=== PATIENT | female | born 1960 | race Two or more races ===

== ENCOUNTER 2017-03-04 15:33 | Emergency (ER) | payer OTHER ==
[2017-03-04 15:59] VITALS: BP 144/89
[2017-03-04] MEDS ORDERED: Diphtheria,Pertussis(Acell),Tetanus Vaccine 0.5 ML SDV IM ONE (16:02)
--- NOTE | 2017-03-04 16:05 | EDM.PDOC ---
ED HPI GENERAL MEDICAL PROBLEM - General Chief Complaint: Upper Extremity Injury/Pain Stated Complaint: FISH HOOK Time Seen by Provider: 03/04/17 16:02 Source of Information: Reports: Patient, Family, RN Notes Reviewed History Limitations: Reports: No Limitations - History of Present Illness INITIAL COMMENTS - FREE TEXT/NARRATIVE: 56-year-old female presents emergency department today with a fishhook injury to her left hand digit #2 no functional complaints Left Hand Pain Score (Numeric/FACES): 5 - Related Data Allergies Allergy/AdvReac Type Severity Reaction Status Date / Time Sulfa (Sulfonamide Allergy Hives Verified 03/04/17 15:59 Antibiotics) Home Meds: Home Meds NK [No Known Home Meds] 02/29/16 [History] Past Medical History Genitourinary History: Reports: Pyelonephritis PATIENT SUPPORT ASSISTANT History: Reports: - Past Surgical History Musculoskeletal Surgical History: Reports: Carpal Tunnel, Ganglion Cyst Social & Family History - Tobacco Use Smoking Status *Q: Light Tobacco Smoker Years of Tobacco use: 25 Packs/Tins Daily: 0.5 - Alcohol Use Days Per Week of Alcohol Use: 7 Number of Drinks Per Day: 3 Total Drinks Per Week: 21 - Recreational Drug Use Recreational Drug Use: No Review of Systems - Review of Systems Review Of Systems: See Below Constitutional: Reports: No Symptoms Skin: Reports: Wound Neurological: Reports: No Symptoms ED EXAM, GENERAL - Physical Exam Exam: See Below Free Text/Narrative:: Examination left hand full range of motion of all digits radial pulses 2+ she does have a 3 barbed hook lodged in the distal aspect of digit #2 palmar surface ED TRAUMA EXTREMITY PROCEDURES - Foreign Body Removal Indication:: Manley Consent Obtained: Patient Performing Doctor:: OfficerChan Foreign Body Other Location Comment:: Digit #2 left hand Anesthesia Type: Local Findings:: Manley removed with the 18-gauge needle technique Complications:: No Course - Vital Signs Last Recorded V/S: Last Vital Signs Temp 95.9 F 03/04/17 15:57 Pulse 71 03/04/17 15:57 Resp 15 03/04/17 15:57 BP 144/89 H 03/04/17 15:57 Pulse Ox 96 03/04/17 15:57 - Orders/Labs/Meds Orders: Active Orders 24 hr Category Date Time Status Vaccines to be Administered [RC] PER UNIT ROUTINE Care 03/04/17 16:02 Active Meds: Medications Discontinued Medications Generic Name Dose Route Start Last Admin Trade Name Giles PRN Reason Stop Dose Admin Diphtheria/Tetanus/Acell Pertussis 0.5 ml 03/04/17 16:02 03/04/17 16:15 Adacel IM 03/04/17 16:03 0.5 ml .ONCE ONE Administration Lidocaine HCl 5 ml 03/04/17 15:52 03/04/17 15:56 Xylocaine-Mpf 1% INJECT 03/04/17 15:53 5 ml ONETIME ONE Administration Departure - Departure Time of Disposition: 16:38 Disposition: Home, Self-Care 01 Condition: Good Clinical Impression: Fish hook injury of left hand Qualifiers: Encounter type: initial encounter Qualified Code(s): S69.92XA - Unspecified injury of left wrist, hand and finger(s), initial encounter - Discharge Information Referrals: PCP,None [Primary Care Provider] - Forms: ED Department Discharge Additional Instructions: Please followup with your primary care provider in 3-5 days if not better, please call return to the emergency department with worsening of symptoms. - My Orders Last 24 Hours: My Active Orders 03/04/17 16:02 Vaccines to be Administered [RC] PER UNIT ROUTINE - Assessment/Plan Last 24 Hours: My Active Orders 03/04/17 16:02 Vaccines to be Administered [RC] PER UNIT ROUTINE Plan: Assessment Acuity = acute Site and laterality = fishhook digit #2 left hand Etiology = Rapila Manifestations = none Location of injury = Home Lab values = none Plan [Follow-up with primary care as needed Patient was in agreement with the plan all questions were answered, they were instructed to return to the emergency department or call for worsening symptoms. This note was dictated using [employer] voice recognition software please call with any questions.
== END 2017-03-04 16:51 | disposition home or self-care (01) ==
LOC: JP.ED 15:33
DX: S60.451A Superficial foreign body of left index finger, initial encounter (principal); F17.210 Nicotine dependence, cigarettes, uncomplicated; Z23 Encounter for immunization; Z98.890 Other specified postprocedural states; Z88.2 Allergy status to sulfonamides; W45.8XXA Other foreign body or object entering through skin, initial encounter
CPT/HCPCS: 90471; 90715; 99283-25